=== PATIENT | female | born 1995 | race Caucasian/White ===

== ENCOUNTER 2021-04-30 10:10 | Emergency (ER) | payer OTHER, SELFPAY ==
--- NOTE | 2021-04-30 10:28 | ED.GENADULT ---
HPI - General Adult General Chief complaint: Upper Respiratory Infection Stated complaint: Sore throat,Headache,Runny Nose Time Seen by Provider: 04/30/21 10:28 Source: patient and RN notes reviewed Mode of arrival: ambulatory Limitations: no limitations History of Present Illness HPI narrative: 25-year-old female presents with complaints of sore throat, cough, congestion, bilateral otalgia, and intermittent headache (not the worst of her life) for the past 2 days. Emil reports increasing sore throat and bilateral otalgia over the past 24 hours. Ibuprofen was last taken at approximately 20:30 on 04/29/2021 with little relief. No high fevers, drooling, neck or throat swelling. Pain is bilateral. Hurts to swallow. Exacerbation factors consist of eating and drinking. No rhinorrhea. Nasal congestion. No voice change. Dry cough without chest congestion. No nausea, vomiting, or abdominal pain. Tolerating liquids well. Denies chills, dyspnea, difficulty swallowing, jaw pain, dental pain, facial pain, foreign body sensation, and rash. LMP unknown due to IUD placed 2 years ago. Remains active. The patient reports she has not been diagnosed with COVID-19. The patient reports she received 2 Pfizer COVID-19 vaccines. The patient reports she is not waiting for the results of a COVID-19 lab test. The patient reports she does not have weakness, fatigue, or myalgia. The patient reports she does not have any loss of taste or smell and diarrhea. Denies recent traveling. Denies concerns for COVID-19 or exposures. At this time, the patient is not suspected of having COVID-19. Some parts of this dictation were generated by voice recognition software and may contain typographical and/or grammatical inaccuracies. Related Data Allergies Allergy/AdvReac Type Severity Reaction Status Date / Time No Known Allergies Allergy Unknown Verified 04/30/21 10:48 Review of Systems Review of Systems: CONSTITUTIONAL: Denies fever, chills, sweats. EYES: Denies visual changes, redness, discharge. ENT: Denies rhinorrhea. Complains of sore throat, congestion, bilateral otalgia. CARDIOVASCULAR: Denies chest pain, palpitations, edema. RESPIRATORY: Denies dyspnea, wheezing. Complaints of cough. GASTROINTESTINAL: Denies abdominal pain, nausea, vomiting, diarrhea. SKIN: Denies rash or itching. MUSCULOSKELETAL: Denies acute back pain, joint pain, or myalgia. NEUROLOGIC: Denies numbness or focal weakness. Complaints of intermittent RIOS, PSYCHIATRIC: Denies anxiety or depression. All systems reviewed & are unremarkable except as noted in HPI and below. [facility] Past Medical History Medical History (Updated 05/01/21 @ 00:01 by Fabian Hernandes) Polydipsia Polyuria Surgical History Surgical History History of appendectomy 2014 [place] teeth removed 2014 Family History Family History (Updated 04/30/21 @ 10:36 by ASHLY Michelle) Grandparent Diabetes mellitus Father Abdominal pain Mother Alive and well Social History Social History (Updated 04/30/21 @ 10:37 by ASHLY Michelle) Smoking status: Never smoker Tobacco type: cigarettes Second hand tobacco smoke exposure: No Alcohol intake: current Drinks per week: 3 Substance use: never Living arrangements: with family Occupation/Education: occupation 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 There is no relevant family history pertinent to the presenting complaint. Exam Narrative: GENERAL: This is a well-nourished, well-developed patient, in no apparent distress. Speaks in full sentenc
[2021-04-30 10:35] VITALS: BP 129/92; PULSE 100; RESP 18; TEMP 36.8; O2SAT 98
[2021-05-01 20:01] LABS: SARS-CoV-2 RNA PCR Negative
== END 2021-04-30 11:00 | disposition home or self-care (01) ==
PROVIDERS: Emergency Provider Nurse Practitioner Family; PCP Family Medicine
DX: J02.9 Acute pharyngitis, unspecified (principal); Z20.822 Contact with and (suspected) exposure to COVID-19
CPT/HCPCS: 87081; 87880; 99213; C9803; G0463; U0003; U0005

== ENCOUNTER 2022-04-07 17:06 | Emergency (ER) | payer BC, SELFPAY ==
[2022-04-07 17:35] VITALS: BP 139/96; PULSE 87; RESP 18; TEMP 36.7; O2SAT 100
--- NOTE | 2022-04-07 17:52 | ED.EAR ---
HPI - Ear Problem General Chief complaint: Ear Stated complaint: earache Time Seen by Provider: 04/07/22 17:52 Source: patient and RN notes reviewed Mode of arrival: ambulatory Limitations: no limitations History of Present Illness HPI Narrative: 26-year-old female presents with concern for left ear pain. She reports her ear was itchy when she scratched it caused pain. She denies upper respiratory symptoms. She denies drainage from the ear. MD Complaint: ear pain Related Data Home Medications Medication Instructions Recorded Confirmed Daily 04/07/22 Wellbutrin 04/07/22 Allergies Allergy/AdvReac Type Severity Reaction Status Date / Time No Known Allergies Allergy Unknown Verified 04/07/22 17:38 Review of Systems Review of Systems: CONSTITUTIONAL: Denies malaise, chills, sweats, or fever. EYES: Denies visual changes, redness, or discharge. ENT: Denies rhinorrhea, congestion, sinus pain, and sore throat. Reports left ear pain CARDIOVASCULAR: Denies chest pain, palpitations, or edema. RESPIRATORY: Denies cough. Denies dyspnea. GASTROINTESTINAL: Denies abdominal pain, nausea, vomiting, diarrhea SKIN: Denies rash or itching. MUSCULOSKELETAL: Denies myalgia. NEUROLOGIC: Denies headache. All systems reviewed & are unremarkable except as noted in HPI and below PMFSH Past Medical History Medical History (Updated 04/07/22 @ 18:01 by Joanna Ramírez NP) Polydipsia Polyuria Surgical History Surgical History History of appendectomy 2014 [place] teeth removed 2014 Family History Family History (Updated 04/30/21 @ 10:36 by ASHLY Michelle) Grandparent Diabetes mellitus Father Abdominal pain Mother Alive and well Social History Social History (Updated 04/30/21 @ 10:37 by ASHLY Michelle) Smoking status: Never smoker Tobacco type: cigarettes Second hand tobacco smoke exposure: No Alcohol intake: current Drinks per week: 3 Substance use: never 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 There is no relevant family history pertinent to the presenting complaint Exam Narrative: GENERAL: Well-appearing, well-nourished, and in no acute distress. HEAD: Normocephalic EYES: PERRLA, conjunctivae clear ENT: Nares clear. Mucous membranes moist. Right TM pearly valdivia with dull light reflex, left TM not visible due to cerumen impaction; no tragal tenderness. NECK: Supple. No lymphadenopathy CHEST: Clear to auscultation, breath sounds equal. No wheezing, rhonchi, rales, or stridor. No respiratory distress, speaks in full sentences. HEART: Regular rate and rhythm. No murmur heard. SKIN: Warm, dry, no rash. NEURO: Alert and oriented x3. PSYCH: Normal mood and affect Course Course Emergency Course: Patient is aware of diagnosis, understands and agrees to treatment plan. Anticipatory guidance given. Patient agrees to follow-up as directed and is aware of reasons to seek care at the emergency department. Portions of this record may have been created with voice recognition software Level of Care: Express Care Visit Vital Signs Vital signs: Vital Signs Temperature 98.1 F 04/07/22 17:35 Pulse Rate 87 04/07/22 17:35 Respiratory Rate 18 04/07/22 17:35 Blood Pressure 139/96 H 04/07/22 17:35 Pulse Oximetry 100 04/07/22 17:35 Oxygen Delivery Room Air 04/07/22 17:35 Temperature 98.1 F 04/07/22 17:35 Pulse Rate 87 04/07/22 17:35 Respiratory Rate 18 04/07/22 17:35 Blood Pressure 139/96 H 04/07/22 17:35 Pulse Oximetry 100 04/07/22 17:35 Oxygen Delivery Room Air 04/07/22
== END 2022-04-07 18:06 | disposition home or self-care (01) ==
PROVIDERS: Emergency Provider Nurse Practitioner
DX: H61.22 Impacted cerumen, left ear (principal)
CPT/HCPCS: 69210; 99212; G0463